=== PATIENT | male | born 1940 | race Caucasian/White ===

== ENCOUNTER 2019-02-04 10:55 | Inpatient (IN) | payer MEDICARE, OTHER ==
[~2019-02-04 10:55] MED LIST: Albuterol 0.083% 2.5 MG/3 ML Neb Soln NEB PRN; Bisacodyl 5 MG Tab PO PRN; Ketorolac 15 MG/ML SDV IVPUSH PRN; Lidocaine 1%/Sod Bicarbonate in NS 8.4% 1 ML Syringe IDERM PRN; Magnesium Hydroxide 400 MG/5 ML Susp 30 ML Cup PO PRN; Morphine 2 MG/ML Syringe IVPUSH PRN; Naloxone 0.4 MG/ML SDV IVPUSH PRN; Ondansetron 4 MG/2 ML SDV IVPUSH PRN; Sennosides 8.6 MG Tab PO PRN; Sodium Chloride 0.9% 10 ML Syringe FLUSH PRN
[2019-02-04] MEDS: Lactated Ringers 1,000 ML IV SCH ×2 (11:30→16:53)
--- NOTE | 2019-02-04 12:23 | PCM.PREANE ---
Preanesthetic Assessment - Procedure Proposed Procedure: right total hip arthroplasty - Anesthesia/Transfusion/Family Hx Anesthesia History: Prior Anesthesia Without Reaction Family History of Anesthesia Reaction: No Transfusion History: No Prior Transfusion(s) - Review of Systems General: No Symptoms Pulmonary: No Symptoms Cardiovascular: No Symptoms Gastrointestinal: No Symptoms Neurological: No Symptoms, Other (short term memory deficit) Other: Reports: Depression - Physical Assessment NPO Status Date: 02/03/19 NPO Status Time: 20:00 (sip this am with pills) Vital Signs: Last Vital Signs Temp 98.1 F 02/04/19 11:10 Pulse 56 L 02/04/19 11:10 Resp 16 02/04/19 11:10 BP 161/97 H 02/04/19 11:10 Pulse Ox 98 02/04/19 11:10 Height: 5 ft 10 in Weight: 78.471 kg ASA Class: 3 Mental Status: Alert & Oriented x3 Airway Class: Mallampati = 2 Dentition: Reports: Dentures (upper plate - lower at home) Thyro-Mental Finger Breadths: 3 Mouth Opening Finger Breadths: 3 ROM/Head Extension: Full Lungs: Clear to Auscultation, Normal Respiratory Effort Cardiovascular: Regular Rate, Regular Rhythm - Lab Values: Laboratory Last Values MRSA (PCR) Negative 01/17/19 11:48 - Allergies Allergies/Adverse Reactions: Allergies Allergy/AdvReac Type Severity Reaction Status Date / Time penicillin V Allergy Cannot Verified 02/01/19 14:00 Remember - Blood Blood Available: No - Acknowledgements Anesthesia Type Planned: General Anesthesia, Spinal Pt an Appropriate Candidate for the Planned Anesthesia: Yes Alternatives and Risks of Anesthesia Discussed w Pt/Guardian: Yes Pt/Guardian Understands and Agrees with Anesthesia Plan: Yes PreAnesthesia Questionnaire HEENT History: Reports: Hard of Hearing, Impaired Vision, Other (See Below) Other HEENT History: has glasses, hearing aids, dentures Cardiovascular History: Reports: High Cholesterol, Hypertension Respiratory History: Reports: None Gastrointestinal History: Reports: GERD, Other (See Below) Other Gastrointestinal History: De La Cruz's esophagus, diverticulosis, gastric ulcer Genitourinary History: Reports: None [employer] History: Reports: None Musculoskeletal History: Reports: Osteoarthritis, Other (See Below) Other Musculoskeletal History: low back pain Neurological History: Reports: Other (See Below) Other Neuro History: lumbar spinal stenosis, memory defecit Psychiatric History: Reports: None Endocrine/Metabolic History: Reports: Other (See Below) Other Endocrine/Metabolic History: folate deficiency Hematologic History: Reports: None Oncologic (Cancer) History: Reports: None Dermatologic History: Reports: None - Past Surgical History Head Surgeries/Procedures: Reports: None HEENT Surgical History: Reports: Other (See Below) Other HEENT Surgeries/Procedures: ear surgery for complications with ear drums Cardiovascular Surgical History: Reports: None Respiratory Surgical History: Reports: None GI Surgical History: Reports: Appendectomy, Colonoscopy, EGD, Marylou Fundoplication Female Surgical History: Reports: None Male Surgical History: Reports: None Endocrine Surgical History: Reports: None Neurological Surgical History: Reports: Lumbar Spine Other Neurological Surgeries/Procedures: L4L5 FUSION Musculoskeletal Surgical History: Reports: Shoulder Surgery, Other (See Below) Other Musculoskeletal Surgeries/Procedures:: bilateral rotator cuff repairs Oncologic Surgical History: Reports: None Dermatological Surgical History: Reports: None - SUBSTANCE USE Smoking Status *Q: Former Smoker (quit 30 years ago) Tobacco Use Within Last Twelve Months: No Second Hand Smoke Exposure: No Days Per Week of Alcohol Use: 7 Number of Drinks Per Day: 3 Total Drinks Per Week: 21 Recreational Drug Use History: No - HOME MEDS Home Medications: Home Meds Albuterol [Ventolin HFA] 2 puff INH Q6H PRN 02/01/19 [History] Ascorbate Calcium [Vitamin C] 500 mg PO DAILY 02/01/19 [History] Azelastine HCl 2 spray NASBOTH DAILY PRN 02/01/19 [History] Cholecalciferol (Vitamin D3) [Vitamin D3] 1,000 unit PO DAILY 02/01/19 [History] Fish Oil/[place]-3 Fatty Acids [Fish Oil 1,000 MG] 1 gm PO DAILY 02/01/19 [History ] Fluticasone Propionate [Flonase] 1 spray NASBOTH DAILY PRN 02/01/19 [History] Folic Acid 1 mg PO DAILY 02/01/19 [History] Loratadine/Pseudoephedrine [Allergy Relief D 12-Hour Tab] 1 tab PO DAILY [History] Losartan Potassium 100 mg PO DAILY 02/01/19 [History] Montelukast [Singulair] 10 mg PO DAILY 02/01/19 [History] Omeprazole Magnesium [Prilosec Otc] 40 mg PO DAILY 02/01/19 [History] Pravastatin Sodium 10 mg PO DAILY 02/01/19 [History] Sertraline HCl 50 mg PO DAILY 02/01/19 [History] Tamsulosin HCl 0.4 mg PO DAILY 02/01/19 [History] Vitamin E 1,000 unit PO DAILY 02/01/19 [History] - CURRENT (IN HOUSE) MEDS Current Meds: Current Medications Hydrocodone Bitart/Acetaminophen ([place] 325-5 Mg) 1 - 2 tab PO Q4H PRN PRN Reason: Pain Albuterol (Proventil Neb Soln) 2.5 mg NEB ONETIME PRN PRN Reason: Bronchodilation Stop: 02/04/19 18:00 Bisacodyl (Dulcolax) 5 mg PO DAILY PRN PRN Reason: Constipation Morphine Sulfate 8 mg/Epinephrine HCl 0.3 mg/Cefuroxime Sodium 750 mg/Ketorolac Tromethamine 30 mg/Sodium Chloride 27.9 ml 0 mg .XX ONETIME ONE Stop: 02/04/19 07:15 Docusate Sodium (Colace) 100 mg PO BID [facility] Lactated Ringer's (Ringers, Lactated) 1,000 mls @ 125 mls/hr IV ASDIRECTED [facility] Last Admin: 02/04/19 11:30 Dose: 125 mls/hr Cefazolin Sodium/Dextrose 2 gm (/ Premix) 50 mls @ 100 mls/hr IV Q8H [facility] Stop: 02/04/19 23:44 Ketorolac Tromethamine (Toradol) 15 mg IVPUSH Q6H PRN PRN Reason: Pain Lidocaine/Sodium Bicarbonate (Buffered Lidocaine 1% In Ns 8.4%) 0.25 ml IDERM ONETIME PRN PRN Reason: Prior to IV Start Stop: 02/04/19 18:00 Last Admin: 02/04/19 11:29 Dose: 0.25 ml Magnesium Hydroxide (Milk Of Magnesia) 30 ml PO BID PRN PRN Reason: Constipation Morphine Sulfate (Morphine) 2 mg IVPUSH Q2H PRN PRN Reason: Breakthrough Pain Naloxone HCl (Narcan) 0.1 mg IVPUSH Q5M PRN PRN Reason: Oversedation Ondansetron HCl (Zofran) 4 mg IVPUSH Q6H PRN PRN Reason: Nausea/Vomiting Rivaroxaban (Xarelto) 10 mg PO DAILY MARCO A Senna (Senna) 8.6 mg PO BID PRN PRN Reason: Constipation Sodium Chloride (Saline Flush) 10 ml FLUSH ASDIRECTED PRN PRN Reason: Keep Vein Open
[2019-02-04] MEDS ORDERED: Propofol 200 MG/20 ML SDV ONE ×3 (13:20→15:45)
[2019-02-04] MEDS ORDERED: ceFAZolin 1 GM Vial ONE (13:20)
[2019-02-04] MEDS ORDERED: Midazolam 1 MG/ML 2 ML SDV ONE (13:21)
[2019-02-04] MEDS ORDERED: fentaNYL 100 MCG/2 ML SDV ONE (13:21)
[2019-02-04] MEDS ORDERED: Bupivacaine 0.75% 30 ML SDV ONE (13:25)
[2019-02-04] MEDS ORDERED: ePHEDrine/Normal Saline 25 MG/5 ML Syringe ONE ×2 (14:51→15:14)
[2019-02-04] MEDS ORDERED: Lactated Ringers 1,000 ML ONE (14:52)
[2019-02-04] MEDS: Bupivacaine 0.25% 10 ML SDV ONE ×2 (15:23→15:42)
[2019-02-04] MEDS: Iodine/Sodium Iodide 2% Tincture 30 ML Bottle ONE ×2 (15:23→15:34)
[2019-02-04] MEDS: ceFAZolin 1 GM Vial ONE ×2 (15:23→15:39)
[2019-02-04] MEDS: Morphine 8 MG, EPINEPHrine 0.3 MG, Cefuroxime 750 MG, Ketorolac 30 MG, Sodium Chloride ... ONE ×10 (15:26→15:43)
[2019-02-04] MEDS: Vancomycin 1 GM SDV ONE ×2 (15:27→15:45)
[2019-02-04] MEDS ORDERED: Fluticasone Propionate Nasal Spray 16 GM Bottle NASBOTH PRN (16:18)
[2019-02-04] MEDS ORDERED: Ondansetron 4 MG/2 ML SDV IVPUSH PRN (16:18)
[2019-02-04] MEDS ORDERED: Albuterol 6.7 GM Inhaler INH PRN (16:18)
[2019-02-04] MEDS ORDERED: fentaNYL 100 MCG/2 ML SDV IVPUSH PRN (16:18)
[2019-02-04] MEDS ORDERED: Non-Formulary Medication 1 Each (Azelastine Hcl [Azelastine Hcl] 2 SPRAY) NASBOTH PRN (16:18)
--- NOTE | 2019-02-04 16:20 | PCM.POSTAN ---
POST ANESTHESIA ASSESSMENT - MENTAL STATUS Mental Status: Alert, Oriented - VITAL SIGNS Vital Signs: Last Vital Signs Temp 98.1 F 02/04/19 11:10 Pulse 56 L 02/04/19 11:10 Resp 16 02/04/19 11:10 BP 161/97 H 02/04/19 11:10 Pulse Ox 98 02/04/19 11:10 1613 99/73 68 15 97.3 - RESPIRATORY Respiratory Status: Respiratory Rate WNL, Airway Patent, O2 Saturation Stable - CARDIOVASCULAR CV Status: Pulse Rate WNL, Blood Pressure Stable - GASTROINTESTINAL GI Status: No Symptoms - PAIN Pain Score: 0 - POST OP HYDRATION Hydration Status: Adequate & Stable
--- NOTE | 2019-02-04 16:48 | CR ---
Pelvis and right hip: AP view of the pelvis was obtained as well as lateral view of the right hip. Comparison: No prior pelvis or hip exam is available. Right hip prosthesis is seen. Components are aligned. Soft tissue air is seen. Underlying bony structures are intact. Joint space within the left hip is preserved. Previous lumbar spine surgery is noted. Osteopenia is present. Impression: 1. Satisfactory radiographic appearance of recently placed right hip prosthesis. 2. Previous lumbar spine surgery. Diagnostic code #2
[2019-02-04] MEDS ORDERED: hydrALAZINE 20 MG/ML SDV IVPUSH PRN (18:51)
[2019-02-04] MEDS: Acetaminophen/HYDROcodone 325-5 MG Tab PO PRN (21:09)
[2019-02-04] MEDS: Docusate Sodium 100 MG Cap PO SCH (21:09)
[2019-02-04] MEDS: ceFAZolin 2 GM in Premix Bag 1 BAG IV SCH (21:13)
[2019-02-05] MEDS: Acetaminophen/HYDROcodone 325-5 MG Tab PO PRN ×2 (04:57→09:23)
[2019-02-05] MEDS: ceFAZolin 2 GM in Premix Bag 1 BAG IV SCH ×2 (04:58→12:39)
--- NOTE | 2019-02-05 06:34 | PCM.CONS ---
H&P History of Present Illness - General Date of Service: 02/05/19 Admit Problem/Dx: Admission Diagnosis/Problem Admission Diagnosis/Problem Osteoarthritis of hip Source of Information: Patient, Old Records, Provider, RN, RN Notes Reviewed History Limitations: Reports: No Limitations - History of Present Illness Initial Comments - Free Text/Narative: Kerwin Troy is a 78 yo male patient of Dr. Isidro who is post-operative day 1 of right GAVI. Hospital medicine was consulted for post-operative medical care of the following listed medical conditions. At this time he is resting comfortably in bed. Pain is controlled. He denies any chest pain, shortness of breath, palpitations, nausea, or vomiting. He carries a history of: HLD, HTN, GERD, Amaya's esophagus, diverticulosis, gastric ulcer, osteoarthritis, low back pain, lumbar spine stenosis, memory defecit, folate deficiency, L4-L5 fusion. He is a former smoker. He is a full code. His primary care provider is Dr. Cadena. Right Hip Pain Score (Numeric/FACES): 0 - Related Data Allergies/Adverse Reactions: Allergies Allergy/AdvReac Type Severity Reaction Status Date / Time penicillin V Allergy Cannot Verified 02/04/19 17:27 Remember Home Medications: Home Meds Albuterol [Ventolin HFA] 2 puff INH Q6H PRN 02/01/19 [History] Azelastine HCl 2 spray NASBOTH DAILY PRN 02/01/19 [History] Cholecalciferol (Vitamin D3) [Vitamin D3] 1,000 unit PO DAILY 02/01/19 [History] Fluticasone Propionate [Flonase] 1 spray NASBOTH DAILY PRN 02/01/19 [History] Folic Acid 1 mg PO DAILY 02/01/19 [History] Loratadine/Pseudoephedrine [Allergy Relief D 12-Hour Tab] 1 tab PO DAILY [History] Losartan Potassium 100 mg PO DAILY 02/01/19 [History] Montelukast [Singulair] 10 mg PO BEDTIME 02/01/19 [History] Omeprazole Magnesium [Prilosec Otc] 40 mg PO ACBREAKFAST 02/01/19 [History] Pravastatin Sodium 10 mg PO DAILY 02/01/19 [History] Sertraline HCl 50 mg PO DAILY 02/01/19 [History] Tamsulosin HCl 0.4 mg PO DAILY 02/01/19 [History] Acetaminophen/HYDROcodone [[place] 325-5 MG] 1 - 2 tab PO Q4H PRN #40 tablet 02/05 [Rx] Bisacodyl [Dulcolax] 5 mg PO DAILY PRN tablet 02/05/19 [Rx] Docusate Sodium [Colace] 100 mg PO BID cap 02/05/19 [Rx] Magnesium Hydroxide [Milk of Magnesia] 30 ml PO BID PRN cup 02/05/19 [Rx] Rivaroxaban [Xarelto] 10 mg PO DAILY #35 tablet 02/05/19 [Rx] Sennosides [Senna] 8.6 mg PO BID PRN tablet 02/05/19 [Rx] Past Medical History HEENT History: Reports: Hard of Hearing, Impaired Vision, Other (See Below) Other HEENT History: has glasses, hearing aids, dentures Cardiovascular History: Reports: High Cholesterol, Hypertension Respiratory History: Reports: None Gastrointestinal History: Reports: Diverticulosis, GERD, Other (See Below) Other Gastrointestinal History: Amaya's esophagus, gastric ulcer Genitourinary History: Reports: [employer] History: Reports: None Musculoskeletal History: Reports: Other (See Below) Other Musculoskeletal History: low back pain, spinal stenosis Neurological History: Reports: Other (See Below) Other Neuro History: short term memory problems Psychiatric History: Reports: None Endocrine/Metabolic History: Reports: Other (See Below) Other Endocrine/Metabolic History: folate deficiency Hematologic History: Reports: None Oncologic (Cancer) History: Reports: None Dermatologic History: Reports: None - Past Surgical History Head Surgeries/Procedures: Reports: None HEENT Surgical History: Reports: Adenoidectomy, Tonsillectomy Cardiovascular Surgical History: Reports: None Respiratory Surgical History: Reports: None GI Surgical History: Reports: Appendectomy, Colonoscopy, EGD, Marylou Fundoplication Male Surgical History: Reports: None Endocrine Surgical History: Reports: None Neurological Surgical History: Reports: Lumbar Spine, Other (See Below) Other Neurological Surgeries/Procedures: L4-L5 FUSION Musculoskeletal Surgical History: Reports: Shoulder Surgery, Other (See Below) Other Musculoskeletal Surgeries/Procedures:: bilateral rotator cuff repairs Oncologic Surgical History: Reports: None Dermatological Surgical History: Reports: None Social & Family History - Family History Family Medical History: Noncontributory - Tobacco Use Smoking Status *Q: Former Smoker Used Tobacco, but Quit: Yes Month/Year Tobacco Last Used: 30 years ago Second Hand Smoke Exposure: No - Caffeine Use Caffeine Use: Reports: Coffee - Alcohol Use Days Per Week of Alcohol Use: 7 Number of Drinks Per Day: 3 Total Drinks Per Week: 21 - Recreational Drug Use Recreational Drug Use: No H&P Review of Systems - Review of Systems: Review Of Systems: See Below General: Reports: No Symptoms. Denies: Fever, Chills HEENT: Reports: No Symptoms. Denies: Headaches, Sore Throat Pulmonary: Reports: No Symptoms. Denies: Shortness of Breath, Wheezing, Cough, Sputum Cardiovascular: Reports: No Symptoms. Denies: Chest Pain, Palpitations Gastrointestinal: Reports: No Symptoms. Denies: Abdominal Pain, Constipation, Diarrhea, Nausea, Vomiting Genitourinary: Reports: No Symptoms. Denies: Pain Musculoskeletal: Reports: Leg Pain Skin: Reports: No Symptoms. Denies: Cyanosis Psychiatric: Reports: No Symptoms. Denies: Confusion Neurological: Reports: No Symptoms Hematologic/Lymphatic: Reports: No Symptoms Immunologic: Reports: No Symptoms Exam - Exam Exam: See Below - Vital Signs Vital Signs: Last Vital Signs Temp 98.2 F 02/05/19 04:32 Pulse 65 02/05/19 04:32 Resp 18 02/05/19 04:32 BP 116/81 02/05/19 04:32 Pulse Ox 98 02/05/19 04:32 Weight: 179 lb 4.8 oz - Exam Quality Assessment: DVT Prophylaxis General: Alert, Oriented, Cooperative. No: Mild Distress HEENT: Conjunctiva Clear, EACs Clear, EOMI, Hearing Intact, Mucosa Moist & [place] , Nares Patent, PERRLA Neck: Supple, Trachea Midline Lungs: Clear to Auscultation, Normal Respiratory Effort Cardiovascular: Regular Rate, Regular Rhythm GI/Abdominal Exam: Normal Bowel Sounds, Soft, Non-Tender, No Organomegaly, No Distention (Male) Exam: Deferred Rectal (Males) Exam: Deferred Back Exam: Normal Inspection, Full Range of Motion Extremities: No Pedal Edema, Normal Capillary Refill, Leg Pain, Limited Range of Motion, Other (Bandage in place on right leg. Bandage is dry and intact ) Peripheral Pulses: 2+: Radial (L), Radial (R), Dorsalis Pedis (L), Dorsalis Pedis (R) Skin: Warm, Dry, Intact Neurological: Cranial Nerves Intact (grossly ) Neuro Extensive - Mental Status: Alert, Oriented x3, Normal Mood/Affect - Patient Data Lab Results Last 24 hrs: Laboratory Results - last 24 hr 02/04/19 Range/Units 11:27 Blood Type O POSITIVE Gel Antibody Screen Negative Result Diagrams: 02/05/19 05:24 02/05/19 05:24 Consult PN Assessment/Plan POD#: 1 Procedures: Procedures ASSAY OF CREATININE (09/05/14) CARDIOVASCULAR STRESS TEST (03/26/18) DRAIN/INJ JOINT/BURSA W/O US (10/05/18) HT MUSCLE IMAGE SPECT MULT (03/26/18) MRI LUMBAR SPINE W/O DYE (09/05/14) NEUROMUSCULAR REEDUCATION (12/01/16) PT EVAL MOD COMPLEX 30 MIN (11/09/16) ROUTINE VENIPUNCTURE (09/05/14) THERAPEUTIC ACTIVITIES (12/01/16) THERAPEUTIC EXERCISES (12/01/16) (1) S/P total hip arthroplasty SNOMED Code(s): 488672247361, 308653476399 Code(s): Z96.649 - PRESENCE OF UNSPECIFIED ARTIFICIAL HIP JOINT Priority: High Current Visit: Yes Qualifiers: Laterality: right Qualified Code(s): Z96.641 - Presence of right artificial hip joint (2) Osteoarthritis SNOMED Code(s): 063870812 Code(s): M19.90 - UNSPECIFIED OSTEOARTHRITIS, UNSPECIFIED SITE Priority: High Current Visit: Yes Qualifiers: Osteoarthritis location: hip Osteoarthritis type: primary Laterality: right Qualified Code(s): M16.11 - Unilateral primary osteoarthritis, right hip (3) HLD (hyperlipidemia) SNOMED Code(s): 79822773 Code(s): E78.5 - HYPERLIPIDEMIA, UNSPECIFIED Priority: Low Current Visit : No Qualifiers: Hyperlipidemia type: unspecified Qualified Code(s): E78.5 - Hyperlipidemia , unspecified (4) HTN (hypertension) SNOMED Code(s): 65563558 Code(s): I10 - ESSENTIAL (PRIMARY) HYPERTENSION Priority: Medium Current Visit: No Qualifiers: Hypertension type: unspecified Qualified Code(s): I10 - Essential (primary ) hypertension (5) GERD (gastroesophageal reflux disease) SNOMED Code(s): 921003999 Code(s): K21.9 - GASTRO-ESOPHAGEAL REFLUX DISEASE WITHOUT ESOPHAGITIS Priority: Low Current Visit: No Qualifiers: Esophagitis presence: with esophagitis Qualified Code(s): K21.0 - Gastro- esophageal reflux disease with esophagitis (6) Barretts esophagus SNOMED Code(s): 334227720 Code(s): K22.70 - AMAYA'S ESOPHAGUS WITHOUT DYSPLASIA Priority: Low Current Visit: No Qualifiers: Amaya's esophagus type: with dysplasia of unspecified degree Qualified Code(s): K22.719 - Amaya's esophagus with dysplasia, unspecified; K22.71 - Amaya's esophagus with dysplasia (7) Diverticulosis SNOMED Code(s): 183031983 Code(s): K57.90 - DVRTCLOS OF INTEST, PART UNSP, W/O PERF OR ABSCESS W/O BLEED Priority: Low Current Visit: No (8) Gastric ulcer SNOMED Code(s): 380928577 Code(s): K25.9 - GASTRIC ULCER, UNSP ACUTE OR CHRONIC, W/O HEMOR OR PERF Priority: Low Current Visit: No Qualifiers: Gastric ulcer chronicity: unspecified ulcer chronicity Gastric ulcer complication status: unspecified whether hemorrhage or perforation present Qualified Code(s): K25.9 - Gastric ulcer, unspecified as acute or chronic, without hemorrhage or perforation (9) Chronic low back pain SNOMED Code(s): 768706327 Code(s): M54.5 - LOW BACK PAIN; G89.29 - OTHER CHRONIC PAIN Priority: Low Current Visit: No Qualifiers: Back pain laterality: unspecified Sciatica presence: unspecified whether sciatica present Qualified Code(s): M54.5 - Low back pain; G89.29 - Other chronic pain (10) Lumbar spinal stenosis SNOMED Code(s): 54110715 Code(s): M48.061 - SPINAL STENOSIS, LUMBAR REGION WITHOUT NEUROGENIC GRACIELA Priority: Low Current Visit: No Qualifiers: Neurogenic claudication status: unspecified Qualified Code(s): M48.061 - Spinal stenosis, lumbar region without neurogenic claudication (11) Memory deficit SNOMED Code(s): 068270798 Code(s): R41.3 - OTHER AMNESIA Priority: Low Current Visit: No (12) Folate deficiency SNOMED Code(s): 604516307 Code(s): E53.8 - DEFICIENCY OF OTHER SPECIFIED B GROUP VITAMINS Priority: Low Current Visit: No Problem List Initiated/Reviewed/Updated: Yes Plan: I/P: Acute: S/P right total hip arthroplasty - post-operative day 1 -DVT prophylaxis and pain management per primary care team -PT/OT -IS/RT -Monitor oxygen saturation -Titrate oxygen as needed -Home medications reviewed -Vital signs stable -Monitor labs -Pre-operative Hgb was 15.1; Now 12.3 -Pre-operative GFR was 87; Now >60 Osteoarthritis of right hip -Pain management per primary care team Chronic: HLD HTN GERD Amaya's esophagus diverticulosis gastric ulcer osteoarthritis low back pain lumbar spine stenosis memory defecit folate deficiency L4-L5 fusion Plan: CM for discharge planning GI prophylaxis Home medications as indicated Other orders as listed above Routine AM labs He is a full code. His PCP is Dr. Cadena From a hospitalist standpoint Kerwin is doing well. He has been up ambulating and working with therapies. He is off of oxygen and has urinated. His labs and vital signs remain stable. He has been utilizing his IS. No patient or nursing concerns. He will be cleared for discharge pending primary team and PT/OT agreement. Thank you for allowing us to participate in the care of this patient!! Requesting Provider: Dr. Isidro Date Consult Requested: 02/04/19 Patient History Reviewed: Yes Admission H&P Reviewed: Yes
[2019-02-05] MEDS ORDERED: Pantoprazole 40 MG Tab.CR PO SCH (07:00)
--- NOTE | 2019-02-05 08:40 | PCM.SURGPN ---
- General Info Date of Service: 02/05/19 POD#: 1 Functional Status: Reports: Pain Controlled, Tolerating Diet, Ambulating, Urinating, Incentive Spirometry - Patient Data Vitals - Most Recent: Last Vital Signs Temp 98.2 F 02/05/19 04:32 Pulse 65 02/05/19 04:32 Resp 18 02/05/19 04:32 BP 116/81 02/05/19 04:32 Pulse Ox 98 02/05/19 04:32 Weight - Most Recent: 179 lb 4.8 oz I&O - Last 24 Hours: Intake & Output 02/04/19 02/05/19 02/05/19 22:59 06:59 14:59 Intake Total 420 300 Output Total 250 Balance 420 50 Lab Results Last 24 Hrs: Laboratory Results - last 24 hr 02/04/19 02/05/19 02/05/19 Range/Units 11:27 05:24 05:24 WBC 11.22 H (4.23-9.07) K/mm3 RBC 4.02 L (4.63-6.08) M/mm3 Hgb 12.3 L (13.7-17.5) gm/L Hct 37.4 L (40.1-51.0) % MCV 93.0 H (79.0-92.2) fl MCH 30.6 (25.7-32.2) pg MCHC 32.9 (32.2-35.5) g/dl RDW Std Deviation 43.0 (35.1-43.9) fL Plt Count 204 (163-337) K/mm3 MPV 11.5 (9.4-12.3) fl Sodium 140 (136-145) mEq/L Potassium 4.0 (3.5-5.1) mEq/L Chloride 105 (98-107) mEq/L Carbon Dioxide 26 (21-32) mEq/L Anion Gap 13.0 (5-15) BUN 11 (7-18) mg/dL Creatinine 0.8 (0.7-1.3) mg/dL Est Cr Clr Drug Dosing 79.84 mL/min Estimated GFR (MDRD) > 60 (>60) mL/min BUN/Creatinine Ratio 13.8 L (14-18) Glucose 119 H (83-115) mg/dL Calcium 8.4 L (8.5-10.1) mg/dL Total Bilirubin 0.9 (0.2-1.0) mg/dL AST 31 (15-37) U/L ALT 26 (16-63) U/L Alkaline Phosphatase 59 (46-116) U/L Total Protein 5.6 L (6.4-8.2) g/dl Albumin 3.0 L (3.4-5.0) g/dl Globulin 2.6 gm/dL Albumin/Globulin Ratio 1.2 (1-2) Blood Type O POSITIVE Gel Antibody Screen Negative Med Orders - Current: Current Medications Hydrocodone Bitart/Acetaminophen ([place] 325-5 Mg) 1 - 2 tab PO Q4H PRN PRN Reason: Pain Last Admin: 02/05/19 04:57 Dose: 2 tab Albuterol (Proventil Hfa) 2 gm INH Q6H PRN PRN Reason: Wheezing Bisacodyl (Dulcolax) 5 mg PO DAILY PRN PRN Reason: Constipation Cholecalciferol (Vitamin D3) 25 mcg PO DAILY [facility] Docusate Sodium (Colace) 100 mg PO BID MARCO A Last Admin: 02/04/19 21:09 Dose: 100 mg Fluticasone Propionate (Flonase) 0 gm NASBOTH DAILY PRN PRN Reason: asdirected Folic Acid (Folic Acid) 1 mg PO DAILY [facility] Hydralazine HCl (Apresoline) 10 mg IVPUSH Q4H PRN PRN Reason: Hypertension Last Admin: 02/04/19 18:58 Dose: 10 mg Cefazolin Sodium/Dextrose 2 gm (/ Premix) 50 mls @ 100 mls/hr IV Q8H MARCO A Stop: 02/05/19 13:59 Last Admin: 02/05/19 04:58 Dose: 100 mls/hr Ketorolac Tromethamine (Toradol) 15 mg IVPUSH Q6H PRN PRN Reason: Pain Last Admin: 02/04/19 22:41 Dose: 15 mg Losartan Potassium (Cozaar) 100 mg PO DAILY [facility] Magnesium Hydroxide (Milk Of Magnesia) 30 ml PO BID PRN PRN Reason: Constipation Montelukast Sodium (Singulair) 10 mg PO DAILY [facility] Morphine Sulfate (Morphine) 2 mg IVPUSH Q2H PRN PRN Reason: Breakthrough Pain Naloxone HCl (Narcan) 0.1 mg IVPUSH Q5M PRN PRN Reason: Oversedation Ondansetron HCl (Zofran) 4 mg IVPUSH Q6H PRN PRN Reason: Nausea/Vomiting Last Admin: 02/04/19 22:40 Dose: 4 mg Pantoprazole Sodium (Protonix) 40 mg PO DAILY@0700 [facility] Last Admin: 02/05/19 06:48 Dose: 40 mg Rivaroxaban (Xarelto) 10 mg PO DAILY [facility] Senna (Senna) 8.6 mg PO BID PRN PRN Reason: Constipation Sertraline HCl (Zoloft) 50 mg PO DAILY [facility] Simvastatin (Zocor) 5 mg PO DAILY [facility] Sodium Chloride (Saline Flush) 10 ml FLUSH ASDIRECTED PRN PRN Reason: Keep Vein Open Tamsulosin HCl (Flomax) 0.4 mg PO DAILY [facility] Discontinued Medications Albuterol (Proventil Neb Soln) 2.5 mg NEB ONETIME PRN PRN Reason: Bronchodilation Stop: 02/04/19 18:00 Bupivacaine HCl (Sensorcaine-Mpf 0.75%) Confirm Administered Dose 30 ml .ROUTE .STK-MED ONE Stop: 02/04/19 13:26 Bupivacaine HCl (Sensorcaine-Mpf 0.25%) Confirm Administered Dose 30 ml .ROUTE .STK-MED ONE Stop: 02/04/19 13:29 Last Admin: 02/04/19 15:42 Dose: 30 ml Cefazolin Sodium (Ancef) Confirm Administered Dose 2 gm .ROUTE .STK-MED ONE Stop: 02/04/19 13:21 Cefazolin Sodium (Ancef) Confirm Administered Dose 2 gm .ROUTE .STK-MED ONE Stop: 02/04/19 13:29 Last Admin: 02/04/19 15:39 Dose: 2 gm Morphine Sulfate 8 mg/Epinephrine HCl 0.3 mg/Cefuroxime Sodium 750 mg/Ketorolac Tromethamine 30 mg/Sodium Chloride 27.9 ml 0 mg .XX ONETIME ONE Stop: 02/04/19 14:01 Last Admin: 02/04/19 15:43 Dose: 788.3 mg Ephedrine Sulfate (Ephedrine In Ns) Confirm Administered Dose 25 mg .ROUTE .STK- MED ONE Stop: 02/04/19 14:52 Ephedrine Sulfate (Ephedrine In Ns) Confirm Administered Dose 25 mg .ROUTE .STK- MED ONE Stop: 02/04/19 15:15 Fentanyl (Sublimaze) Confirm Administered Dose 100 mcg .ROUTE .STK-MED ONE Stop: 02/04/19 13:22 Fentanyl (Sublimaze) 50 mcg IVPUSH Q5M PRN PRN Reason: Pain Lactated Ringer's (Ringers, Lactated) 1,000 mls @ 125 mls/hr IV ASDIRECTED [facility] Last Admin: 02/04/19 16:53 Dose: 125 mls/hr Lactated Ringer's (Ringers, Lactated) Confirm Administered Dose 1,000 mls @ as directed .ROUTE .STK-MED ONE Stop: 02/04/19 14:53 Iodine (Iodine 2% Mild Tincture) Confirm Administered Dose 30 ml .ROUTE .STK- MED ONE Stop: 02/04/19 13:29 Last Admin: 02/04/19 15:34 Dose: 18 ml Lidocaine HCl (Xylocaine-Mpf 1%) Confirm Administered Dose 5 ml .ROUTE .STK-MED ONE Stop: 02/04/19 13:26 Lidocaine/Sodium Bicarbonate (Buffered Lidocaine 1% In Ns 8.4%) 0.25 ml IDERM ONETIME PRN PRN Reason: Prior to IV Start Stop: 02/04/19 18:00 Last Admin: 02/04/19 11:29 Dose: 0.25 ml Midazolam HCl (Versed 1 Mg/Ml) Confirm Administered Dose 2 mg .ROUTE .STK-MED ONE Stop: 02/04/19 13:22 Non-Formulary Medication (Azelastine Hcl [Azelastine Hcl]) 2 spray NASBOTH DAILY PRN PRN Reason: as directed Ondansetron HCl (Zofran) 4 mg IVPUSH ONETIME PRN PRN Reason: Nausea/Vomiting Propofol (Diprivan 20 Ml) Confirm Administered Dose 200 mg .ROUTE .STK-MED ONE Stop: 02/04/19 13:21 Propofol (Diprivan 20 Ml) Confirm Administered Dose 200 mg .ROUTE .STK-MED ONE Stop: 02/04/19 15:09 Propofol (Diprivan 20 Ml) Confirm Administered Dose 200 mg .ROUTE .STK-MED ONE Stop: 02/04/19 15:46 Tranexamic Acid (Cyklokapron) Confirm Administered Dose 1,000 mg .ROUTE .STK- MED ONE Stop: 02/04/19 13:29 Last Admin: 02/04/19 15:44 Dose: 1,000 mg Vancomycin HCl (Vancomycin) Confirm Administered Dose 1 gm .ROUTE .STK-MED ONE Stop: 02/04/19 13:29 Last Admin: 02/04/19 15:45 Dose: 1 gm - Exam Wound/Incisions: Dressing Dry and Intact General: Alert, Cooperative, No Acute Distress Lungs: Normal Respiratory Effort Extremities: Other (NVS intact for RLE. Nay's negative.) - Problem List Review Problem List Initiated/Reviewed/Updated: Yes - My Orders Last 24 Hours: Active Orders 24 hr Category Date Time Status Ready for Discharge [RC] PER UNIT ROUTINE Care 02/05/19 08:35 Ordered Regular Diet [DIET] Diet 02/04/19 Lunch Active Albuterol [Proventil HFA] Med 02/04/19 16:18 Active 2 gm INH Q6H PRN Cholecalciferol (Vitamin D3) [Vitamin D3] Med 02/05/19 09:00 Active 25 mcg PO DAILY Docusate Sodium [Colace] Med 02/04/19 21:00 Active 100 mg PO BID Fluticasone Propionate [Flonase] Med 02/04/19 16:18 Active 0 gm NASBOTH DAILY PRN Folic Acid Med 02/05/19 09:00 Active 1 mg PO DAILY Losartan [Cozaar] Med 02/05/19 09:00 Active 100 mg PO DAILY Montelukast [Singulair] Med 02/05/19 09:00 Active 10 mg PO DAILY Pantoprazole [ProTONIX] Med 02/05/19 07:00 Active 40 mg PO DAILY@0700 Rivaroxaban [Xarelto] Med 02/05/19 09:00 Active 10 mg PO DAILY Sertraline [Zoloft] Med 02/05/19 09:00 Active 50 mg PO DAILY Simvastatin [Zocor] Med 02/05/19 09:00 Active 5 mg PO DAILY Tamsulosin [Flomax] Med 02/05/19 09:00 Active 0.4 mg PO DAILY ceFAZolin [Ancef] 2 gm Med 02/04/19 21:30 Active Premix Bag 1 bag IV Q8H hydrALAZINE [Apresoline] Med 02/04/19 18:51 Active 10 mg IVPUSH Q4H PRN Medication Orders Hydrocodone Bitart/Acetaminophen (Vernalis 325-5 Mg) 1 - 2 tab PO Q4H PRN PRN Reason: Pain Last Admin: 02/05/19 04:57 Dose: 2 tab Admin: 02/04/19 21:09 Dose: 2 tab Albuterol (Proventil Hfa) 2 gm INH Q6H PRN PRN Reason: Wheezing Bisacodyl (Dulcolax) 5 mg PO DAILY PRN PRN Reason: Constipation Cholecalciferol (Vitamin D3) 25 mcg PO DAILY [facility] A Docusate Sodium (Colace) 100 mg PO BID MARCO A Last Admin: 02/04/19 21:09 Dose: 100 mg Fluticasone Propionate (Flonase) 0 gm NASBOTH DAILY PRN PRN Reason: asdirected Folic Acid (Folic Acid) 1 mg PO DAILY [facility] Hydralazine HCl (Apresoline) 10 mg IVPUSH Q4H PRN PRN Reason: Hypertension Last Admin: 02/04/19 18:58 Dose: 10 mg Cefazolin Sodium/Dextrose 2 gm (/ Premix) 50 mls @ 100 mls/hr IV Q8H MARCO A Stop: 02/05/19 13:59 Last Admin: 02/05/19 04:58 Dose: 100 mls/hr Infusion: 02/04/19 21:43 Dose: 100 mls/hr Admin: 02/04/19 21:13 Dose: 100 mls/hr Ketorolac Tromethamine (Toradol) 15 mg IVPUSH Q6H PRN PRN Reason: Pain Last Admin: 02/04/19 22:41 Dose: 15 mg Losartan Potassium (Cozaar) 100 mg PO DAILY [facility] Magnesium Hydroxide (Milk Of Magnesia) 30 ml PO BID PRN PRN Reason: Constipation Montelukast Sodium (Singulair) 10 mg PO DAILY [facility] Morphine Sulfate (Morphine) 2 mg IVPUSH Q2H PRN PRN Reason: Breakthrough Pain Naloxone HCl (Narcan) 0.1 mg IVPUSH Q5M PRN PRN Reason: Oversedation Ondansetron HCl (Zofran) 4 mg IVPUSH Q6H PRN PRN Reason: Nausea/Vomiting Last Admin: 02/04/19 22:40 Dose: 4 mg Pantoprazole Sodium (Protonix) 40 mg PO DAILY@0700 [facility] Last Admin: 02/05/19 06:48 Dose: 40 mg Rivaroxaban (Xarelto) 10 mg PO DAILY [facility] Senna (Senna) 8.6 mg PO BID PRN PRN Reason: Constipation Sertraline HCl (Zoloft) 50 mg PO DAILY [facility] Simvastatin (Zocor) 5 mg PO DAILY [facility] Sodium Chloride (Saline Flush) 10 ml FLUSH ASDIRECTED PRN PRN Reason: Keep Vein Open Tamsulosin HCl (Flomax) 0.4 mg PO DAILY [facility] - Assessment Assessment (Free Text/Narrative):: POD#1 - right GAVI - Plan Plan (Free Text/Narrative):: 1. Hgb 12.3. 2. Xarelto 10mg PO daily. 3. Discharge to home today if cleared by Hospitalist service and therapies. 4. GAVI precautions. The pt's case was discussed with Dr. Isidro.
[2019-02-05] MEDS ORDERED: Tamsulosin 0.4 MG Cap.ER PO SCH (09:00)
[2019-02-05] MEDS ORDERED: Cholecalciferol (Vitamin D3) 25 MCG Tab PO SCH (09:00)
[2019-02-05] MEDS ORDERED: Losartan 100 MG Tab PO SCH (09:00)
[2019-02-05] MEDS ORDERED: Sertraline 50 MG Tab PO SCH (09:00)
[2019-02-05] MEDS ORDERED: Simvastatin 10 MG Tab PO SCH (09:00)
[2019-02-05] MEDS ORDERED: Rivaroxaban 10 MG Tab PO SCH (09:00)
[2019-02-05] MEDS ORDERED: Folic Acid 1 MG Tab PO SCH (09:00)
[2019-02-05] MEDS ORDERED: Montelukast 10 MG Tab PO SCH (09:00)
[2019-02-05] MEDS: Docusate Sodium 100 MG Cap PO SCH (09:12)
--- NOTE | 2019-02-05 09:54 | PCM48HPAN ---
Post Anesthesia Note - EVALUATION WITHIN 48HRS OF ANESTHETIC Vital Signs in Normal Range: Yes Patient Participated in Evaluation: Yes Respiratory Function Stable: Yes Airway Patent: Yes Cardiovascular Function Stable: Yes Hydration Status Stable: Yes Pain Control Satisfactory: Yes Nausea and Vomiting Control Satisfactory: Yes Mental Status Recovered: Yes Vital Signs: Last Vital Signs Temp 36.6 C 02/05/19 08:30 Pulse 71 02/05/19 08:30 Resp 16 02/05/19 08:30 BP 109/88 02/05/19 09:12 Pulse Ox 99 02/05/19 08:30
--- NOTE | 2019-02-05 16:43 | PCM.DCSUM1 ---
Discharge Summary - Hospital Course Brief History: Kerwin is a 78 yo male who underwent right GAVI with Dr. Isidro on . The procedure was completed under spinal anesthesia with MAC. The pt tolerated the procedure well and was admitted to the Medical-Surgical Unit. Medical management was provided by the Hospitalist service. The pt's Hospital course was uneventful. The pt's Hgb on POD#1 was 12.3. On POD#1, Xarelto 10mg PO daily was initiated for VTE prophylaxis. SCDs and TEDs were also ordered. A Mepilex dressing was placed at the incision site at the time of surgery and remained clean and dry. The pt participated in P.T. and O.T. and progressed well. He followed the GAVI precautions. The pt was allowed to WBAT. On POD#1, the pt was deemed appropriate to discharge to home with his . - Discharge Data Discharge Date: 02/05/19 Discharge Disposition: Home, Self-Care 01 Condition: Good - Patient Summary/Data Consults: Consultations 02/04/19 07:14 OT Evaluation and Treatment [CONS] Routine PT Evaluation and Treatment [CONS] Routine 02/04/19 07:15 Consult to Physician [CONS] Routine - Patient Instructions Diet: Usual Diet as Tolerated Activity: Apply Ice, As Tolerated, Elevate Extremity, Full Weight Bearing Activity, Other: Please follow the total hip precautions. Driving: Do Not Drive Showering/Bathing: May Shower Wound/Incision Care: Keep Operative Site/Wound Site Clean and Dry, Do NOT Change Dressing Notify Provider of: Fever, Increased Pain, Swelling and Redness, Drainage, Nausea and/or Vomiting Other/Special Instructions: Please get up and moving around EVERY HOUR while awake. This helps to prevent blood clots. Please use your walker and have help with mobility as needed. Take a short walk in your home every hour while awake. Please take the Xarelto blood thinner medication daily as directed. At home, please complete the exercises that you learned during the Hospital stay. Schedule for physical therapy. Use the pain medication as needed. The medication may cause drowsiness and constipation. Contact your primary care provider for instructions if you are constipated. You may use a stool softener like docusate sodium or Colace 100mg twice daily and/or a laxative like Miralax daily for constipation. Increase your water and fiber intake while you are using the pain medication. Discontinue use of the pain medication as soon as able. Please do not use other medications that may cause drowsiness (other pain medications, anxiety pills, cold medications, sleeping pills, etc) while using the prescription pain medication. Do not use alcohol while using the pain medication. You may use acetaminophen or Tylenol for pain management, however, please ensure you are not using over 4000 mg or 4 grams of acetaminophen per day from all sources. Your pain medication has 325mg of acetaminophen per tablet. At this time, please do not use ibuprofen (Motrin, Advil) or naproxen (Aleve) for pain management as you are using the Xarelto. When the Xarelto course is completed in 5 weeks, you could use ibuprofen or naproxen for pain management (if this is allowed by your primary care provider) . Wear the LISSA hose during the day and you may remove these at night. Elevate the limb to decrease swelling. Place ice to the area often. Place a towel between your skin and the blue pad. Use the incentive spirometer often. Take deep breaths throughout the day. Please keep the dressing in place until follow -up. Notify the Clinic if the dressing becomes saturated. Increase your protein intake while you are healing. Call the Clinic with questions or concerns - [phone]. - Discharge Plan *PRESCRIPTION DRUG MONITORING PROGRAM REVIEWED*: No *COPY OF PRESCRIPTION DRUG MONITORING REPORT IN PATIENT JORI: No Prescriptions/Med Rec: Acetaminophen/HYDROcodone [[place] 325-5 MG] 1 - 2 tab PO Q4H PRN #40 tablet PRN Reason: Pain Rivaroxaban [Xarelto] 10 mg PO DAILY #35 tablet Home Medications: Home Meds Albuterol [Ventolin HFA] 2 puff INH Q6H PRN 02/01/19 [History] Azelastine HCl 2 spray NASBOTH DAILY PRN 02/01/19 [History] Cholecalciferol (Vitamin D3) [Vitamin D3] 1,000 unit PO DAILY 02/01/19 [History] Fluticasone Propionate [Flonase] 1 spray NASBOTH DAILY PRN 02/01/19 [History] Folic Acid 1 mg PO DAILY 02/01/19 [History] Loratadine/Pseudoephedrine [Allergy Relief D 12-Hour Tab] 1 tab PO DAILY [History] Losartan Potassium 100 mg PO DAILY 02/01/19 [History] Montelukast [Singulair] 10 mg PO BEDTIME 02/01/19 [History] Omeprazole Magnesium [Prilosec Otc] 40 mg PO ACBREAKFAST 02/01/19 [History] Pravastatin Sodium 10 mg PO DAILY 02/01/19 [History] Sertraline HCl 50 mg PO DAILY 02/01/19 [History] Tamsulosin HCl 0.4 mg PO DAILY 02/01/19 [History] Acetaminophen/HYDROcodone [[place] 325-5 MG] 1 - 2 tab PO Q4H PRN #40 tablet 02/05 [Rx] Bisacodyl [Dulcolax] 5 mg PO DAILY PRN tablet 02/05/19 [Rx] Docusate Sodium [Colace] 100 mg PO BID cap 02/05/19 [Rx] Magnesium Hydroxide [Milk of Magnesia] 30 ml PO BID PRN cup 02/05/19 [Rx] Rivaroxaban [Xarelto] 10 mg PO DAILY #35 tablet 02/05/19 [Rx] Sennosides [Senna] 8.6 mg PO BID PRN tablet 02/05/19 [Rx] Patient Handouts: Total Hip Replacement, [id number], Total Hip Replacement, Care After, [id number] Referrals: Azeb Murcia PA-C [Physician Director [employer]olesale] - 02/12/19 9:45 am (you have an appointment with Azeb on 02/12 at 0945 9 at 0945 10 at 0945 ) - Discharge Summary/Plan Comment DC Time >30 min.: No - Patient Data Vitals - Most Recent: Last Vital Signs Temp 97.9 F 02/05/19 08:30 Pulse 71 02/05/19 08:30 Resp 16 02/05/19 08:30 BP 109/88 02/05/19 09:12 Pulse Ox 99 02/05/19 08:30 Weight - Most Recent: 179 lb 4.8 oz I&O - Last 24 hours: Intake & Output 02/05/19 02/05/19 02/05/19 06:59 14:59 22:59 Intake Total 300 540 240 Output Total 250 Balance 50 540 240 Lab Results - Last 24 hrs: Laboratory Results - last 24 hr 02/05/19 02/05/19 Range/Units 05:24 05:24 WBC 11.22 H (4.23-9.07) K/mm3 RBC 4.02 L (4.63-6.08) M/mm3 Hgb 12.3 L (13.7-17.5) gm/L Hct 37.4 L (40.1-51.0) % MCV 93.0 H (79.0-92.2) fl MCH 30.6 (25.7-32.2) pg MCHC 32.9 (32.2-35.5) g/dl RDW Std Deviation 43.0 (35.1-43.9) fL Plt Count 204 (163-337) K/mm3 MPV 11.5 (9.4-12.3) fl Sodium 140 (136-145) mEq/L Potassium 4.0 (3.5-5.1) mEq/L Chloride 105 (98-107) mEq/L Carbon Dioxide 26 (21-32) mEq/L Anion Gap 13.0 (5-15) BUN 11 (7-18) mg/dL Creatinine 0.8 (0.7-1.3) mg/dL Est Cr Clr Drug Dosing 79.84 mL/min Estimated GFR (MDRD) > 60 (>60) mL/min BUN/Creatinine Ratio 13.8 L (14-18) Glucose 119 H (83-115) mg/dL Calcium 8.4 L (8.5-10.1) mg/dL Total Bilirubin 0.9 (0.2-1.0) mg/dL AST 31 (15-37) U/L ALT 26 (16-63) U/L Alkaline Phosphatase 59 (46-116) U/L Total Protein 5.6 L (6.4-8.2) g/dl Albumin 3.0 L (3.4-5.0) g/dl Globulin 2.6 gm/dL Albumin/Globulin Ratio 1.2 (1-2) Med Orders - Current: Current Medications Hydrocodone Bitart/Acetaminophen ([place] 325-5 Mg) 1 - 2 tab PO Q4H PRN PRN Reason: Pain Last Admin: 02/05/19 09:23 Dose: 2 tab Albuterol (Proventil Hfa) 2 gm INH Q6H PRN PRN Reason: Wheezing Bisacodyl (Dulcolax) 5 mg PO DAILY PRN PRN Reason: Constipation Cholecalciferol (Vitamin D3) 25 mcg PO DAILY [facility] Last Admin: 02/05/19 09:10 Dose: 25 mcg Docusate Sodium (Colace) 100 mg PO BID [facility] Last Admin: 02/05/19 09:12 Dose: 100 mg Fluticasone Propionate (Flonase) 0 gm NASBOTH DAILY PRN PRN Reason: asdirected Folic Acid (Folic Acid) 1 mg PO DAILY [facility] Last Admin: 02/05/19 09:13 Dose: 1 mg Hydralazine HCl (Apresoline) 10 mg IVPUSH Q4H PRN PRN Reason: Hypertension Last Admin: 02/04/19 18:58 Dose: 10 mg Ketorolac Tromethamine (Toradol) 15 mg IVPUSH Q6H PRN PRN Reason: Pain Last Admin: 02/04/19 22:41 Dose: 15 mg Losartan Potassium (Cozaar) 100 mg PO DAILY [facility] Last Admin: 02/05/19 09:12 Dose: 100 mg Magnesium Hydroxide (Milk Of Magnesia) 30 ml PO BID PRN PRN Reason: Constipation Montelukast Sodium (Singulair) 10 mg PO DAILY [facility] Last Admin: 02/05/19 09:13 Dose: 10 mg Morphine Sulfate (Morphine) 2 mg IVPUSH Q2H PRN PRN Reason: Breakthrough Pain Naloxone HCl (Narcan) 0.1 mg IVPUSH Q5M PRN PRN Reason: Oversedation Ondansetron HCl (Zofran) 4 mg IVPUSH Q6H PRN PRN Reason: Nausea/Vomiting Last Admin: 02/04/19 22:40 Dose: 4 mg Pantoprazole Sodium (Protonix) 40 mg PO DAILY@0700 [facility] Last Admin: 02/05/19 06:48 Dose: 40 mg Rivaroxaban (Xarelto) 10 mg PO DAILY [facility] Last Admin: 02/05/19 09:13 Dose: 10 mg Senna (Senna) 8.6 mg PO BID PRN PRN Reason: Constipation Sertraline HCl (Zoloft) 50 mg PO DAILY [facility] Last Admin: 02/05/19 09:12 Dose: 50 mg Simvastatin (Zocor) 5 mg PO DAILY [facility] Last Admin: 02/05/19 09:10 Dose: 5 mg Sodium Chloride (Saline Flush) 10 ml FLUSH ASDIRECTED PRN PRN Reason: Keep Vein Open Tamsulosin HCl (Flomax) 0.4 mg PO DAILY [facility] Last Admin: 02/05/19 09:12 Dose: 0.4 mg Discontinued Medications Albuterol (Proventil Neb Soln) 2.5 mg NEB ONETIME PRN PRN Reason: Bronchodilation Stop: 02/04/19 18:00 Bupivacaine HCl (Sensorcaine-Mpf 0.75%) Confirm Administered Dose 30 ml .ROUTE .STK-MED ONE Stop: 02/04/19 13:26 Bupivacaine HCl (Sensorcaine-Mpf 0.25%) Confirm Administered Dose 30 ml .ROUTE .STK-MED ONE Stop: 02/04/19 13:29 Last Admin: 02/04/19 15:42 Dose: 30 ml Cefazolin Sodium (Ancef) Confirm Administered Dose 2 gm .ROUTE .STK-MED ONE Stop: 02/04/19 13:21 Cefazolin Sodium (Ancef) Confirm Administered Dose 2 gm .ROUTE .STK-MED ONE Stop: 02/04/19 13:29 Last Admin: 02/04/19 15:39 Dose: 2 gm Morphine Sulfate 8 mg/Epinephrine HCl 0.3 mg/Cefuroxime Sodium 750 mg/Ketorolac Tromethamine 30 mg/Sodium Chloride 27.9 ml 0 mg .XX ONETIME ONE Stop: 02/04/19 14:01 Last Admin: 02/04/19 15:43 Dose: 788.3 mg Ephedrine Sulfate (Ephedrine In Ns) Confirm Administered Dose 25 mg .ROUTE .STK- MED ONE Stop: 02/04/19 14:52 Ephedrine Sulfate (Ephedrine In Ns) Confirm Administered Dose 25 mg .ROUTE .STK- MED ONE Stop: 02/04/19 15:15 Fentanyl (Sublimaze) Confirm Administered Dose 100 mcg .ROUTE .STK-MED ONE Stop: 02/04/19 13:22 Fentanyl (Sublimaze) 50 mcg IVPUSH Q5M PRN PRN Reason: Pain Lactated Ringer's (Ringers, Lactated) 1,000 mls @ 125 mls/hr IV ASDIRECTED [facility] A Last Admin: 02/04/19 16:53 Dose: 125 mls/hr Cefazolin Sodium/Dextrose 2 gm (/ Premix) 50 mls @ 100 mls/hr IV Q8H [facility] Stop: 02/05/19 13:59 Last Admin: 02/05/19 12:39 Dose: 100 mls/hr Lactated Ringer's (Ringers, Lactated) Confirm Administered Dose 1,000 mls @ as directed .ROUTE .STK-MED ONE Stop: 02/04/19 14:53 Iodine (Iodine 2% Mild Tincture) Confirm Administered Dose 30 ml .ROUTE .STK- MED ONE Stop: 02/04/19 13:29 Last Admin: 02/04/19 15:34 Dose: 18 ml Lidocaine HCl (Xylocaine-Mpf 1%) Confirm Administered Dose 5 ml .ROUTE .STK-MED ONE Stop: 02/04/19 13:26 Lidocaine/Sodium Bicarbonate (Buffered Lidocaine 1% In Ns 8.4%) 0.25 ml IDERM ONETIME PRN PRN Reason: Prior to IV Start Stop: 02/04/19 18:00 Last Admin: 02/04/19 11:29 Dose: 0.25 ml Midazolam HCl (Versed 1 Mg/Ml) Confirm Administered Dose 2 mg .ROUTE .STK-MED ONE Stop: 02/04/19 13:22 Non-Formulary Medication (Azelastine Hcl [Azelastine Hcl]) 2 spray NASBOTH DAILY PRN PRN Reason: as directed Ondansetron HCl (Zofran) 4 mg IVPUSH ONETIME PRN PRN Reason: Nausea/Vomiting Propofol (Diprivan 20 Ml) Confirm Administered Dose 200 mg .ROUTE .STK-MED ONE Stop: 02/04/19 13:21 Propofol (Diprivan 20 Ml) Confirm Administered Dose 200 mg .ROUTE .STK-MED ONE Stop: 02/04/19 15:09 Propofol (Diprivan 20 Ml) Confirm Administered Dose 200 mg .ROUTE .STK-MED ONE Stop: 02/04/19 15:46 Tranexamic Acid (Cyklokapron) Confirm Administered Dose 1,000 mg .ROUTE .STK- MED ONE Stop: 02/04/19 13:29 Last Admin: 02/04/19 15:44 Dose: 1,000 mg Vancomycin HCl (Vancomycin) Confirm Administered Dose 1 gm .ROUTE .STK-MED ONE Stop: 02/04/19 13:29 Last Admin: 02/04/19 15:45 Dose: 1 gm
--- NOTE | 2019-02-08 13:49 | PCM.OPNOTE ---
- General Post-Op/Procedure Note Date of Surgery/Procedure: 02/04/19 Operative Procedure(s): right total hip arthroplasty Pre Op Diagnosis: right hip osteoarthrosis Post-Op Diagnosis: Same Anesthesia Technique: Local, MAC, Spinal Primary Surgeon: Pepe Isidro Anesthesia Provider: Bro Stewart [facility] Practitioner: Azeb Murcia [facility] Practitioner: Dee Jiménez EBMira in mLs: 300 Complications: None Condition: Good Free Text/Narrative:: 56 cup 28-2 head 46 liner 6 stem
--- NOTE | 2019-02-08 14:27 | OR ---
DATE OF OPERATION: 02/04/2019 SURGEON: Pepe Isidro MD OPERATION PERFORMED: Right total hip arthroplasty. PREOPERATIVE DIAGNOSIS: Right total hip osteoarthrosis. POSTOPERATIVE DIAGNOSIS: Right total hip osteoarthrosis. ANESTHESIA: Local MAC with spinal. ANESTHESIA PROVIDER: Bro Stewart CRNA. DRY KILN LOADER: Azeb Murcia PA-C and Dee Jiménez LPN. ESTIMATED BLOOD LOSS: 300 mL. COMPLICATIONS: None. CONDITION: Stable. IMPLANTS: 1. [place] size 56 mm Tritanium II acetabular cup. 2. [place] size 28 -2 by locks femoral head. 3. [place] size 42 MDM components. 4. [place] size 46 mm liner. 5. [place] size 6 Accolade II stem. DESCRIPTION OF PROCEDURE: The patient was identified in the preoperative holding area. Proper site was marked and identified by the surgeon. The patient was taken back to the operating theater where after adequate anesthesia, the patient was placed in a left lateral decubitus position. Axillary roll was placed. The patient's skin was well padded. The pegs were then placed and were well padded. The patient's gluteal fold was parallel to the floor. Right hip was then sterilely prepped and draped in the usual sterile fashion. OR time-out was performed. The patient received 2 g IV Ancef. Standard posterior incision was made centered over the greater trochanter. This was taken down to the IT band and gluteal fascia, which was incised along the incisional length. Charnley retractor was then placed. Short external rotators were identified and takedown of short external rotators as well as a capsulotomy was performed from the level of the piriformis down to the lesser trochanter. The hip was then dislocated. The neck cut was then completed and was found to be adequate. Attention was turned to the acetabulum, anterior and posterior acetabular retractors were then placed. The labrum was circumferentially removed as well as the palmar. Starting with a 50 reamer, I was able to ream up to a 56 which was found to have good adequate purchase with a good bony bleeding bed and the acetabulum. At this time, a 56 mm Tritanium II acetabular cup was impacted in place and roughly 45 degrees abduction and 20 to 30 degrees of anteversion. The MDM liner was then impacted into place and found to be solidly fixed. Attention was turned to the femoral neck. A femoral elevator was placed. Starter awl was placed down the canal. Starting with the 0 broach, I was able to broach up to a size 6 which was found to be rotationally and vertically stable. The trial MDM components were then placed. Starting with a 0, there was found to be just a small amount long so -2 was then trialed and found to have adequate voodoo of leg lengths. The 28/46 MDM components were constructed on the back table. The size 6 Accolade II stem was then impacted into place and the MDM components were impacted onto the femoral stem. Hip was then relocated and found to be stable throughout range of motion. A #5 Ethibond suture was used for closure of the short external rotators and capsulotomy. 1 L dilute Betadine solution was then irrigated through the hip along with 2 L of pulse lavage irrigation with Ancef. A periarticular injection was then completed. Topical tranexamic acid as well as vancomycin powder were applied. A #2 barbed suture was used for closure. It band and gluteal fascia, 2-0 Vicryl was used subcutaneously, and Prineo was used for the skin. The patient was sent to PACU in stable condition. MMODAL /[id number]
== END 2019-02-05 13:28 | disposition home or self-care (01) | DRG 470 ==
LOC: JD.MS 10:55 → JD.ICU 12:23 → JD.MS 17:00
PROVIDERS: ADMIT Orthopaedic Surgery; ATTEND Orthopaedic Surgery
PROC: 0SR901Z Replacement of Right Hip Joint with Metal Synthetic Substitute, Open Approach (ICD-10-PCS; principal; 2019-02-04)
DX: M16.11 Unilateral primary osteoarthritis, right hip (principal); E78.2 Mixed hyperlipidemia; I10 Essential (primary) hypertension; M19.079 Primary osteoarthritis, unspecified ankle and foot; H54.7 Unspecified visual loss; H91.90 Unspecified hearing loss, unspecified ear; E78.00 Pure hypercholesterolemia, unspecified; N40.0 Benign prostatic hyperplasia without lower urinary tract symptoms; K21.0 Gastro-esophageal reflux disease with esophagitis; G89.29 Other chronic pain; M54.5 Low back pain; E53.8 Deficiency of other specified B group vitamins; Z88.0 Allergy status to penicillin; Z90.49 Acquired absence of other specified parts of digestive tract; Z98.890 Other specified postprocedural states; Z87.891 Personal history of nicotine dependence; Z98.1 Arthrodesis status; Z79.51 Long term (current) use of inhaled steroids; Z79.2 Long term (current) use of antibiotics; Z79.899 Other long term (current) drug therapy
CPT/HCPCS: 01214; 36415; 73501-26-RT; 73501-RT; 80053; 85027; 86850; 86900; 86901; 87641; 97110-GP; 97116-GP; 97161-GP; 97165-GO; 97535-GO; A9270-GY; C1776; J0171; J0360; J0690; J0697; J1885; J2001; J2250; J2270; J2405; J2704; J3010; J3370; J3490; J7050; J7120

== ENCOUNTER 2022-05-17 12:47 | Emergency (ER) | payer MEDICARE, OTHER ==
[2022-05-17] MEDS ORDERED: Sodium Chloride 0.9% 1,000 ML IV ONE (13:17)
[2022-05-17] MEDS ORDERED: Sodium Chloride 0.9% 10 ML Syringe FLUSH PRN (13:17)
== END 2022-05-17 16:25 | disposition home or self-care (01) ==
LOC: JD.ED 12:47
DX: I95.1 Orthostatic hypotension (principal); E78.00 Pure hypercholesterolemia, unspecified; I10 Essential (primary) hypertension; Z88.0 Allergy status to penicillin; Z79.899 Other long term (current) drug therapy; Z90.49 Acquired absence of other specified parts of digestive tract
CPT/HCPCS: 36415; 71045; 80053; 85025; 96360; 99285; J3490; J7030

== ENCOUNTER 2022-07-14 13:12 | Emergency (ER) | payer MEDICARE, OTHER ==
[2022-07-14] MEDS ORDERED: Sodium Chloride 0.9% 10 ML Syringe FLUSH PRN (13:52)
[2022-07-14] MEDS ORDERED: Sodium Chloride 0.9% 1,000 ML IV SCH (14:15)
[2022-07-14] MEDS ORDERED: Lactated Ringers 1,000 ML IV ONE (15:50)
[2022-07-14 17:20] LABS: CORONAVIRUS COVID-19 NAA POSITIVE (NEGATIVE)
== END 2022-07-14 18:15 | disposition home or self-care (01) ==
LOC: JD.ED 13:12
DX: U07.1 COVID-19 (principal); E86.0 Dehydration; F03.B0 Unspecified dementia, moderate, without behavioral disturbance, psychotic disturbance, mood disturbance, and anxiety; E78.00 Pure hypercholesterolemia, unspecified; I10 Essential (primary) hypertension; K21.9 Gastro-esophageal reflux disease without esophagitis; Z88.0 Allergy status to penicillin; Z79.899 Other long term (current) drug therapy
CPT/HCPCS: 0241U; 36415; 71045; 80053; 84484; 85025; 93005; 96360; 96361; 99285; J3490; J7030; J7120; 93010; 99284

== ENCOUNTER 2022-08-28 12:04 | Emergency (ER) | payer MEDICARE, OTHER ==
[2022-08-28] MEDS ORDERED: Ondansetron 4 MG/2 ML SDV IVPUSH ONE (13:06)
[2022-08-28] MEDS ORDERED: Sodium Chloride 0.9% 1,000 ML IV ONE (13:06)
[2022-08-28 14:02] LABS: CORONAVIRUS COVID-19 NAA NEGATIVE (NEGATIVE)
[2022-08-28] MEDS ORDERED: metroNIDAZOLE 500 MG Tab PO ONE (19:05)
[2022-08-28] MEDS ORDERED: Levofloxacin 750 MG Tab PO ONE (19:07)
== END 2022-08-28 20:03 | disposition home or self-care (01) ==
LOC: JD.ED 12:04
DX: K57.32 Diverticulitis of large intestine without perforation or abscess without bleeding (principal); E78.00 Pure hypercholesterolemia, unspecified; I10 Essential (primary) hypertension; N40.0 Benign prostatic hyperplasia without lower urinary tract symptoms; K21.9 Gastro-esophageal reflux disease without esophagitis; Z88.0 Allergy status to penicillin; Z79.899 Other long term (current) drug therapy; Z87.891 Personal history of nicotine dependence; Z20.822 Contact with and (suspected) exposure to COVID-19
CPT/HCPCS: 0241U; 36415; 74018; 74177; 80053; 81003; 83735; 85025; 86140; 93005; 96361; 96374; 99284; A9270; J2405; J7030; 93010

== ENCOUNTER 2022-09-14 09:55 | Inpatient (IN) | payer MEDICARE, OTHER ==
[2022-09-14] MEDS ORDERED: Acetaminophen/HYDROcodone 325-5 MG Tab PO ONE (11:27)
[2022-09-14] MEDS ORDERED: Sodium Chloride 0.9% 10 ML Syringe FLUSH PRN (11:27)
[2022-09-14] MEDS ORDERED: Calcium Carbonate 500 MG Tab.Chew PO PRN (11:59)
[2022-09-14] MEDS ORDERED: Ondansetron 4 MG/2 ML SDV IV PRN (13:06)
[2022-09-14] MEDS ORDERED: HYDROmorphone 0.5 MG/0.5 ML Syringe IVPUSH PRN (13:06)
[2022-09-14] MEDS: oxyCODONE 5 MG Tab PO PRN (20:37)
[2022-09-14] MEDS: risperiDONE 1 MG Tab PO SCH (20:37)
[2022-09-14] MEDS: Montelukast 10 MG Tab PO SCH (20:41)
[2022-09-14] MEDS ORDERED: traZODone 50 MG Tab PO PRN (21:00)
[2022-09-15] MEDS: Pantoprazole 40 MG Tab.CR PO SCH (07:40)
[2022-09-15] MEDS ORDERED: Sodium Chloride 0.9% 1,000 ML ONE (07:58)
[2022-09-15] MEDS ORDERED: Sodium Chloride 0.9% 500 ML IV ONE (08:05)
[2022-09-15] MEDS: Folic Acid 1 MG Tab PO SCH (08:06)
[2022-09-15] MEDS: risperiDONE 1 MG Tab PO SCH ×2 (08:06→21:00)
[2022-09-15] MEDS: Enoxaparin 40 MG/0.4 ML Syringe SUBCUT SCH (08:06)
[2022-09-15] MEDS: Tamsulosin 0.4 MG Cap.ER PO SCH (08:06)
[2022-09-15] MEDS: atorvaSTATin 20 MG Tab PO SCH (08:06)
[2022-09-15] MEDS: Docusate Sodium 100 MG Cap PO SCH (08:07)
[2022-09-15] MEDS: Sodium Chloride 0.9% 1,000 ML IV SCH ×2 (09:40→15:27)
[2022-09-15] MEDS: oxyCODONE 5 MG Tab PO PRN (18:11)
[2022-09-15] MEDS: Montelukast 10 MG Tab PO SCH (21:00)
[2022-09-16] MEDS: Pantoprazole 40 MG Tab.CR PO SCH (05:42)
[2022-09-16] MEDS: oxyCODONE 5 MG Tab PO PRN (05:42)
[2022-09-16] MEDS: atorvaSTATin 20 MG Tab PO SCH (08:59)
[2022-09-16] MEDS: risperiDONE 1 MG Tab PO SCH ×2 (08:59→21:26)
[2022-09-16] MEDS: Tamsulosin 0.4 MG Cap.ER PO SCH (09:00)
[2022-09-16] MEDS: Folic Acid 1 MG Tab PO SCH (09:00)
[2022-09-16] MEDS ORDERED: Magnesium Sulfate/Water 2 GM in Premix Bag 1 BAG IV ONE (09:00)
[2022-09-16] MEDS: Docusate Sodium 100 MG Cap PO SCH (09:00)
[2022-09-16] MEDS: Enoxaparin 40 MG/0.4 ML Syringe SUBCUT SCH (09:01)
[2022-09-16] MEDS: Sodium Chloride 0.9% 1,000 ML IV SCH (19:37)
[2022-09-16] MEDS: Montelukast 10 MG Tab PO SCH (21:26)
[2022-09-16] MEDS: Acetaminophen 325 MG Tab PO PRN (21:27)
[2022-09-16] MEDS ORDERED: Sodium Chloride 0.9% 500 ML IV ONE (23:39)
[2022-09-17] MEDS: Acetaminophen 325 MG Tab PO PRN ×2 (05:28→20:43)
[2022-09-17] MEDS: Pantoprazole 40 MG Tab.CR PO SCH (05:29)
[2022-09-17] MEDS: risperiDONE 1 MG Tab PO SCH ×2 (08:00→20:48)
[2022-09-17] MEDS: Tamsulosin 0.4 MG Cap.ER PO SCH (08:00)
[2022-09-17] MEDS: atorvaSTATin 20 MG Tab PO SCH (08:00)
[2022-09-17] MEDS: Docusate Sodium 100 MG Cap PO SCH (08:00)
[2022-09-17] MEDS: Folic Acid 1 MG Tab PO SCH (08:00)
[2022-09-17] MEDS: Enoxaparin 40 MG/0.4 ML Syringe SUBCUT SCH (09:26)
[2022-09-17] MEDS: Midodrine 5 MG Tab PO SCH ×2 (11:31→18:06)
[2022-09-17] MEDS: Sodium Chloride 0.9% 1,000 ML IV SCH (18:06)
[2022-09-17] MEDS: Montelukast 10 MG Tab PO SCH (20:43)
[2022-09-17] MEDS ORDERED: Magnesium Hydroxide 400 MG/5 ML Susp 30 ML Cup PO ONE (21:00)
[2022-09-18] MEDS: Midodrine 5 MG Tab PO SCH ×3 (06:37→17:44)
[2022-09-18] MEDS: Pantoprazole 40 MG Tab.CR PO SCH (06:37)
[2022-09-18] MEDS: Sodium Chloride 0.9% 1,000 ML IV SCH ×2 (06:41→23:38)
[2022-09-18] MEDS: Enoxaparin 40 MG/0.4 ML Syringe SUBCUT SCH (09:06)
[2022-09-18] MEDS: atorvaSTATin 20 MG Tab PO SCH (09:07)
[2022-09-18] MEDS: Folic Acid 1 MG Tab PO SCH (09:07)
[2022-09-18] MEDS: Docusate Sodium 100 MG Cap PO SCH (09:07)
[2022-09-18] MEDS: risperiDONE 1 MG Tab PO SCH ×2 (09:08→19:46)
[2022-09-18] MEDS: Tamsulosin 0.4 MG Cap.ER PO SCH (09:08)
[2022-09-18] MEDS: Acetaminophen 325 MG Tab PO PRN (19:46)
[2022-09-18] MEDS: Montelukast 10 MG Tab PO SCH (19:46)
[2022-09-19] MEDS: Montelukast 10 MG Tab PO SCH (00:45)
[2022-09-19] MEDS: risperiDONE 1 MG Tab PO SCH ×2 (00:45→09:44)
[2022-09-19] MEDS: Acetaminophen 325 MG Tab PO PRN (04:04)
[2022-09-19] MEDS: Pantoprazole 40 MG Tab.CR PO SCH (06:19)
[2022-09-19] MEDS: Midodrine 5 MG Tab PO SCH ×2 (06:20→09:44)
[2022-09-19] MEDS ORDERED: Bisacodyl 10 MG Supp RECTAL ONE (06:35)
[2022-09-19] MEDS: Docusate Sodium 100 MG Cap PO SCH (09:44)
[2022-09-19] MEDS: Tamsulosin 0.4 MG Cap.ER PO SCH (09:44)
[2022-09-19] MEDS: atorvaSTATin 20 MG Tab PO SCH (09:44)
[2022-09-19] MEDS: Enoxaparin 40 MG/0.4 ML Syringe SUBCUT SCH (09:44)
[2022-09-19] MEDS: Folic Acid 1 MG Tab PO SCH (09:44)
[2022-09-19] MEDS ORDERED: Docusate Sodium 100 MG Cap PO SCH (21:00)
== END 2022-09-19 14:45 | disposition other institution (70) | DRG 561 ==
LOC: JD.ED 09:55 → JD.MS 12:46
PROVIDERS: ADMIT Internal Medicine; ATTEND Internal Medicine
DX: M97.01XA Periprosthetic fracture around internal prosthetic right hip joint, initial encounter (principal); G89.29 Other chronic pain; M54.50 Low back pain, unspecified; E53.8 Deficiency of other specified B group vitamins; K21.9 Gastro-esophageal reflux disease without esophagitis; M19.90 Unspecified osteoarthritis, unspecified site; N40.0 Benign prostatic hyperplasia without lower urinary tract symptoms; Z96.641 Presence of right artificial hip joint; W19.XXXA Unspecified fall, initial encounter; M11.261 Other chondrocalcinosis, right knee; Z66 Do not resuscitate; I10 Essential (primary) hypertension; E78.00 Pure hypercholesterolemia, unspecified; R13.10 Dysphagia, unspecified; R41.3 Other amnesia; F03.B0 Unspecified dementia, moderate, without behavioral disturbance, psychotic disturbance, mood disturbance, and anxiety; F41.9 Anxiety disorder, unspecified; H91.90 Unspecified hearing loss, unspecified ear; M16.11 Unilateral primary osteoarthritis, right hip; I95.1 Orthostatic hypotension; W18.30XA Fall on same level, unspecified, initial encounter; Y92.89 Other specified places as the place of occurrence of the external cause; Z79.899 Other long term (current) drug therapy; Z90.49 Acquired absence of other specified parts of digestive tract; Z98.890 Other specified postprocedural states; Z90.89 Acquired absence of other organs; Z98.1 Arthrodesis status
CPT/HCPCS: 36415; 73502; 73552; 80053; 85025; 99284; A9270; J3490; 51701; 80048; 81001; 83735; 97110-GP; 97116-GP; 97162-GP; 97166-GO; 97530-GO; 97530-GP; 99285; J1650; J3475; J7030